=== PATIENT | male | born 1985 | race Caucasian/White ===

== ENCOUNTER 2021-06-15 15:06 | Emergency (ER) | payer SELFPAY ==
--- NOTE | 2021-06-15 15:54 | EDM.PDOCBH ---
ED HPI GENERAL MEDICAL PROBLEM - General Chief Complaint: Behavioral/Psych Stated Complaint: [facility] Time Seen by Provider: 06/15/21 15:25 Source of Information: Reports: Patient, RN Notes Reviewed History Limitations: Reports: No Limitations - History of Present Illness INITIAL COMMENTS - FREE TEXT/NARRATIVE: Patient is a 35-year-old male who is brought into the ER by [facility] for his suicidal ideations. Patient states that he has been struggling with suicidal ideations for some time. Notes that he has made suicidal attempts in the past, with taking Tylenol and Benadryl. Which resulted in a hospitalization and acute liver failure. He has never had any sort of inpatient psychiatric management. States that he has a history of GERD and severe depression but is not on any medications for this. He did seek care through [facility] yesterday, and was set up to see someone today, but did not have enough money for this appointment so he had to reschedule. States that having enough money seems to be a trigger for him, and this sets him off into suicidal thoughts. So it seems to be somewhat of a revolving [place]. He also has thoughts of not being aware of the father/significant other. Patient denies any other sick-like symptoms, fever/chills, cough/shortness of breath, nausea/vomiting/diarrhea. Patient did bite some Tylenol and Benadryl and Visine today, in an attempt to try to end his life however he states he did not take any of these medications, [place] one would find him, but noted that a group activities aide was driving behind him, so he put his hazards on and asked the group activities aide for help. Patient states that if he is allowed to go home, he knows that he might try ending his life once again. Patient denies any drug use or alcohol use. States that he has not slept in over 36 hours. - Related Data Allergies Allergy/AdvReac Type Severity Reaction Status Date / Time seafood Allergy Vomiting Uncoded 06/15/21 15:24 Home Meds: Home Meds Esomeprazole Magnesium [Nexium 24Hr] 20 mg PO DAILY 06/15/21 [History] Famotidine/Ca Carb/Mag Hydrox [Pepcid Complete] 1 tab PO ASDIRECTED PRN 06/15/21 [History] Past Medical History Gastrointestinal History: Reports: GERD Psychiatric History: Reports: Depression Social & Family History - Tobacco Use Tobacco Use Status *Q: Never Tobacco User Second Hand Smoke Exposure: No - Recreational Drug Use Recreational Drug Use: No ED ROS GENERAL - Review of Systems Review Of Systems: Comprehensive ROS is negative, except as noted in HPI. ED EXAM, BEHAVIORAL HEALTH - Physical Exam Exam: See Below Exam Limited By: No Limitations General Appearance: Alert, WD/WN, No Apparent Distress Respiratory/Chest: No Respiratory Distress, Lungs Clear, Normal Breath Sounds, No Accessory Muscle Use, Chest Non-Tender Cardiovascular: Normal Peripheral Pulses, Regular Rate, Rhythm, No Edema GI/Abdominal: Normal Bowel Sounds, Soft, Non-Tender, No Distention, No Mass Extremities: Normal Inspection, Normal Capillary Refill Neurological: Alert, Normal Mood/Affect, Normal Cognition, No Motor/Sensory Deficits Psychiatric: Depressed Mood, Flat Affect, Tearful, Suicidal Plan (bought tylenol/benadryl today in attempts to end his life), Suicidal Thoughts. No: Homicidal Thoughts, Auditory Hallucinations, Visual Hallucinations, Paranoid Tho ughts Skin Exam: Warm, Dry, Intact, Normal color, No rash COURSE, BEHAVIORAL HEALTH COMP - Course Vital Signs: Last Vital Signs Temp 98.1 F 06/15/21 15:20 Pulse 87 06/15/21 15:20 Resp 16 06/15/21 15:20 BP 140/98 H 06/15/21 15:20 Pulse Ox 97 06/15/21 15:20 Orders, Labs, Meds: Laboratory Tests 06/15/21 06/15/21 06/15/21 Range/Units 15:55 16:08 16:08 WBC 6.71 (4.23-9.07) K/mm3 RBC 5.20 (4.63-6.08) M/mm3 Hgb 15.8 (13.7-17.5) gm/dl Hct 47.6 (40.1-51.0) % MCV 91.5 (79.0-92.2) fl MCH 30.4 (25.7-32.2) pg MCHC 33.2 (32.2-35.5) g/dl RDW Std Deviation 42.1 (35.1-43.9) fL Plt Count 270 (163-337) K/mm3 MPV 11.3 (9.4-12.3) fl Neut % (Auto) 59.1 (34.0-67.9) % Lymph % (Auto) 27.3 (21.8-53.1) % Frio % (Auto) 7.7 (5.3-12.2) % Eos % (Auto) 5.2 (0.8-7.0) Baso % (Auto) 0.6 (0.1-1.2) % Neut # (Auto) 3.96 (1.78-5.38) K/mm3 Lymph # (Auto) 1.83 (1.32-3.57) K/mm3 Frio # (Auto) 0.52 (0.30-0.82) K/mm3 Eos # (Auto) 0.35 (0.04-0.54) K/mm3 Baso # (Auto) 0.04 (0.01-0.08) K/mm3 Sodium 140 (136-145) mEq/L Potassium 4.1 (3.5-5.1) mEq/L Chloride 104 (98-107) mEq/L Carbon Dioxide 26 (21-32) mEq/L Anion Gap 14.1 (5-15) BUN 15 (7-18) mg/dL Creatinine 1.2 (0.7-1.3) mg/dL Est Cr Clr Drug Dosing TNP Estimated GFR (MDRD) > 60 (>60) mL/min BUN/Creatinine Ratio 12.5 L (14-18) Glucose 95 (70-99) mg/dL Calcium 9.3 (8.5-10.1) mg/dL Total Bilirubin 0.6 (0.2-1.0) mg/dL AST 27 (15-37) U/L ALT 63 (16-63) U/L Alkaline Phosphatase 75 (46-116) U/L Total Protein 7.9 (6.4-8.2) g/dl Albumin 4.3 (3.4-5.0) g/dl Globulin 3.6 gm/dL Albumin/Globulin Ratio 1.2 (1-2) TSH 3rd Generation 1.181 (0.358-3.74) uIU/mL Salicylates (2.8-20) mg/dL Urine Opiates Screen (EORJMQ=831) Ur Buprenorphine Scrn (CUTOFF=10) Ur Oxycodone Screen (LZI6IT=402) Urine Methadone Screen (BDA2NI=544) Ur Propoxyphene Screen (QVBKCY=759) Acetaminophen 0 L (10-30) ug/mL Ur Barbiturates Screen (QVGOVJ=669) Ur Tricyclics Screen (TZXQWZ=491) Ur Phencyclidine Scrn (CUTOFF=25) Ur Amphetamine Screen (VTONUR=676) U Methamphetamines Scrn (FHPKEG=209) U Benzodiazepines Scrn (ZIWKRP=788) U Cocaine Metab Screen (WWVGWZ=501) U Marijuana (THC) Screen (CUTOFF=50) Ethyl Alcohol 0.00 (0.00) gm% SARS-CoV-2 RNA (YURY) Negative (NEGATIVE) 06/15/21 06/15/21 Range/Units 16:08 16:27 WBC (4.23-9.07) K/mm3 RBC (4.63-6.08) M/mm3 Hgb (13.7-17.5) gm/dl Hct (40.1-51.0) % MCV (79.0-92.2) fl MCH (25.7-32.2) pg MCHC (32.2-35.5) g/dl RDW Std Deviation (35.1-43.9) fL Plt Count (163-337) K/mm3 MPV (9.4-12.3) fl Neut % (Auto) (34.0-67.9) % Lymph % (Auto) (21.8-53.1) % Frio % (Auto) (5.3-12.2) % Eos % (Auto) (0.8-7.0) Baso % (Auto) (0.1-1.2) % Neut # (Auto) (1.78-5.38) K/mm3 Lymph # (Auto) (1.32-3.57) K/mm3 Frio # (Auto) (0.30-0.82) K/mm3 Eos # (Auto) (0.04-0.54) K/mm3 Baso # (Auto) (0.01-0.08) K/mm3 Sodium (136-145) mEq/L Potassium (3.5-5.1) mEq/L Chloride (98-107) mEq/L Carbon Dioxide (21-32) mEq/L Anion Gap (5-15) BUN (7-18) mg/dL Creatinine (0.7-1.3) mg/dL Est Cr Clr Drug Dosing Estimated GFR (MDRD) (>60) mL/min BUN/Creatinine Ratio (14-18) Glucose (70-99) mg/dL Calcium (8.5-10.1) mg/dL Total Bilirubin (0.2-1.0) mg/dL AST (15-37) U/L ALT (16-63) U/L Alkaline Phosphatase (46-116) U/L Total Protein (6.4-8.2) g/dl Albumin (3.4-5.0) g/dl Globulin gm/dL Albumin/Globulin Ratio (1-2) TSH 3rd Generation (0.358-3.74) uIU/mL Salicylates 0.1 L (2.8-20) mg/dL Urine Opiates Screen Negative (SWCEZJ=410) Ur Buprenorphine Scrn Negative (CUTOFF=10) Ur Oxycodone Screen Negative (KYZ2II=599) Urine Methadone Screen Negative (FMV0RD=992) Ur Propoxyphene Screen Negative (GSAEZV=191) Acetaminophen (10-30) ug/mL Ur Barbiturates Screen Negative (UMBVZP=075) Ur Tricyclics Screen Negative (CTXLUT=139) Ur Phencyclidine Scrn Negative (CUTOFF=25) Ur Amphetamine Screen Negative (YBNXCY=494) U Methamphetamines Scrn Negative (IFZHJP=937) U Benzodiazepines Scrn Negative (KQGRHL=287) U Cocaine Metab Screen Negative (MANBRV=317) U Marijuana (THC) Screen Negative (CUTOFF=50) Ethyl Alcohol (0.00) gm% SARS-CoV-2 RNA (YURY) (NEGATIVE) Discharge vs Psych Eval/Treatment:: 06/15/21 15:53 Patient presents to the ER for the evaluation of his suicidal ideations. Patient verbalizes thoughts of suicidal ideation/plan and I do believe inpatient psychiatric management could be beneficial for this patient. We will go ahead and get some labs for initial management. However I will be in contact with [facility] as the patient is very worried about the cost of things. I do believe if the patient could be monitored closely, he might be fit for crisis bed at [facility] with evaluation by their psychiatrist and get started on medications. 06/15/21 17:14 Labs are all back and are unremarkable, I have been tried to get in contact with [facility] but have not received a phone call back from anyone at this time. I did call [facility] in [place], and they did state that they were full for inpatient psychiatric management. I will go back and talk with the patient and go over options at this time for ongoing management. 06/15/21 17:36 Was made aware by nursing staff, that [facility] did call back, and they state they are bringing a second patient up to the ER for evaluation and will then evaluate this patient for ongoing management. We will see if they feel comfortable taking him in outpatient management. If they do not feel comfortable doing as such, we will move forward with the emergency hold and try to find him placement for inpatient psychiatric management. 06/15/21 18:21 I did talk with staff at [facility] and they state that they unfortunately do not have any beds open at this time but they did state this would be someone that they would take. They will check back with us, if he still here over the weekend for ongoing management. 06/15/21 18:39 I was able to get a hold of [facility] in [place], and they do have a bed available and talk with Dr. Paul and she did tentatively accept the patient for management. They are requesting that the hold paperwork be faxed to them for their review, and they will call to fully accept this patient once this has been reviewed. 06/15/21 20:44 Was made aware by nursing staff, that transportation has been an issue, and that [facility] stated that we will have to try to call again in the morning for acceptance as they cannot hold the bed for longer than 2 hours or so. They did state that they have a few beds available for management however and that it could be possible that it will be available in the morning. I have discussed the case with Dr. Eller for overnight purposes; Pt may have to be transferred to skilled nursing overnight for transportation in the morning due to lack of staffing and needing one on one suicide precautions. Departure - Departure Time of Disposition: 22:17 Disposition: DC/Tfer to Psych Hosp/Unit 65 Clinical Impression: Suicidal ideations - Discharge Information Referrals: PCP,None [Primary Care Provider] - Forms: ED Department Discharge Sepsis Event Note (ED) - Evaluation Sepsis Screening Result: No Definite Risk
[2021-06-15 16:49] LABS: ACETAMINOPHEN 0 ug/mL (10-30)
== END 2021-06-16 06:10 ==
LOC: JD.ED 15:06
DX: F32.A Depression, unspecified (principal); Z91.013 Allergy to seafood; Z20.822 Contact with and (suspected) exposure to COVID-19
CPT/HCPCS: 36415; 80053; 80143; 80179; 80306; 80307; 84443; 85025; 99285; U0002